=== PATIENT | male | born 2000 | race Caucasian/White ===

== ENCOUNTER 2021-11-08 13:15 | Emergency (ER) | payer OTHER, BC ==
[~2021-11-08] VITALS: Ht 177.8 cm; Wt 77.6 kg
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
[2021-11-08 13:28] VITALS: BP_SYST 132
--- NOTE | 2021-11-08 14:20 | NUR ---
Dr Cabello evaluating patient at bedside
[2021-11-08] MEDS ORDERED: SOM350 PO (15:24)
[2021-11-08] MEDS ORDERED: IBUP-1971 PO (15:24)
--- NOTE | 2021-11-08 15:36 | NUR ---
Patient given written and verbal discharge instructions and verbalizes understanding. ER MD discussed with patient the results and treatment provided. Patient in stable condition. ID arm band removed. Rx of IBUPROFEN AND SOMA given. Patient educated on pain management and to follow up with PMD. Pain Scale 0/10. Opportunity for questions provided and answered. Medication side effect fact sheet provided.
[2021-11-08 15:40] VITALS: BP_SYST 129
== END 2021-11-08 15:36 | disposition home or self-care (01) ==
LOC: SED 13:15
DX: S20.219A Contusion of unspecified front wall of thorax, initial encounter (principal); V49.49XA Driver injured in collision with other motor vehicles in traffic accident, initial encounter; Y93.89 Activity, other specified; Y92.89 Other specified places as the place of occurrence of the external cause; Y99.8 Other external cause status
CPT/HCPCS: 71045; 93005; 99283